=== PATIENT | male | born 1940 | race Caucasian/White ===

== ENCOUNTER 2018-05-01 17:34 | Emergency (ER) | payer OTHER ==
[~2018-05-01] VITALS: Ht 177.8 cm; Wt 88.9 kg
[2018-05-01] MEDS ORDERED: AZATHIOPRINE50 MG PO (18:03)
[2018-05-01] MEDS ORDERED: ELIQUIS5 M1 PO (18:03)
[2018-05-01] MEDS ORDERED: DILTIAZEM 24HR300 M2 PO (18:03)
[2018-05-01] MEDS ORDERED: OMEPRAZOLE20 M1 PO (18:04)
[2018-05-01] MEDS ORDERED: BENAZEPRIL-HCT1 EA11 PO (18:04)
[2018-05-01] MEDS ORDERED: BUSPIRONE HCL10 MG PO (18:04)
[2018-05-01] MEDS ORDERED: ASPIR 8181 MG PO (18:05)
[2018-05-01] MEDS ORDERED: LASIX 20 MG TAB20 MG PO (18:05)
[2018-05-01] MEDS ORDERED: CLARITIN10 MG PO (18:05)
[2018-05-01] MEDS ORDERED: ROSUVASTATIN CA20 MG PO (18:06)
[2018-05-01] MEDS ORDERED: IMURAN 50MG TAB50 M1 PO (18:06)
[2018-05-01] MEDS ORDERED: ZPAK PO (19:40)
[2018-05-01] MEDS ORDERED: PREDNISONE 20 M20 M1 PO (19:40)
[2018-05-01 19:48] VITALS: BP 162/75
== END 2018-05-01 19:48 | disposition home or self-care (01) ==
LOC: M.ERS 17:34
DX: J40 Bronchitis, not specified as acute or chronic (principal); M06.9 Rheumatoid arthritis, unspecified